=== PATIENT | female | born 1965 | race Caucasian/White ===

== ENCOUNTER 2022-06-25 08:07 | Outpatient (REF) | payer OTHER, SELFPAY ==
[2022-06-25 11:24] LABS: MANUAL DIFF FLAG NO
[2022-06-25 11:30] LABS: Basophils Absolute Auto 0.1 X10*3/uL (0.0-0.2); Eosinophils Absolute Auto 0.2 X10*3/uL (0.0-0.4); Eosinophils Percent Auto 3.8 % (0-4); Hematocrit 44.1 % (37.0-47.0); Hemoglobin 14.4 g/dl (12.0-16.0); Imm Gran Abs Auto 0.01 X10*3/uL (0.00-0.03); Imm Gran Pct Auto 0.2 % (0.0-0.4); Lymphocytes Absolute Auto 1.4 X10*3/uL (1.2-4.9); Lymphocytes Percent Auto 27.9 % (20-40); Mean Corpuscular HGB Conc 32.7 g/dl (31.0-35.0); Mean Corpuscular Hemoglobin 31.4 pg (27.0-33.0); Mean Corpuscular Volume 96.1 fL (80.0-98.0); Mean Platelet Volume 10.1 fL (9.4-12.3); Monocytes Absolute Auto 0.5 X10*3/uL (0.1-1.2); Monocytes Percent Auto 9.3 % (2-11); Neutrophils Absolute Auto 2.9 x10*3/uL (2.0-8.3); Neutrophils Percent Auto 57.8 % (45-73); Platelet Count 288 X10*3/uL (160-400); Red Blood Count 4.59 X10*6/uL (4.20-5.50); Red Cell Distribution Width 11.9 % (11.0-16.0); White Blood Count 5.1 X10*3/uL (4.8-10.8)
[2022-06-25 11:39] LABS: Appearance Urine Clear; Color Urine Yellow; Glucose Urine UA Negative (Negative); Leukocyte Esterase Urine Negative (Negative); Nitrite Urine Negative (Negative); Specific Gravity - Urine <= 1.005 (1.005-1.025); Urine Blood Negative (Negative); Urine Ketones Negative (Negative); Urine Protein Negative (Neg-Trace)
[2022-06-25 12:11] LABS: TSH reflex Free T4 0.78 uIU/mL (0.32-4.0); Vitamin D 25-OH Total 39.1 ng/mL (>30)
[2022-06-25 12:21] LABS: Alanine Aminotransferase 19 U/L (0-31); Albumin Level 4.9 g/dL (3.5-5.0); Alkaline Phosphatase 72 U/L (39-117); Anion Gap 17 (12-20); Aspartate Amino Transferase 22 U/L (5-31); Bilirubin Total 0.5 mg/dL (0.0-1.0); Blood Urea Nitrogen 12 mg/dL (9-16); Calcium 10.3 mg/dL (8.4-10.2); Carbon Dioxide 26 mmol/L (22-29); Chloride 104 mmol/L (96-108); Cholesterol 231 mg/dL; Estimated Glomerular Filt Rate > 60; Glucose Fasting 90 mg/dL (60-99); HDL Cholesterol 95 mg/dL; LDL Cholesterol Calculated 116 mg/dl; Potassium 4.9 mmol/L (3.3-5.1); Sodium 142 mmol/L (135-145); Total Protein 7.6 g/dL (6.5-8.0); Triglycerides 104 mg/dL
== END 2022-06-25 08:08 | disposition home or self-care (01) ==
LOC: HO.HMGCLDS 08:07
PROVIDERS: PCP Internal Medicine; Visit Provider Internal Medicine
DX: Z13.89 Encounter for screening for other disorder (principal)
CPT/HCPCS: 36415; 80053; 80061; 81003; 82306; 84443; 85025

== ENCOUNTER 2023-06-29 06:02 | Outpatient (REF) | payer OTHER, SELFPAY ==
[2023-06-29 11:13] LABS: MANUAL DIFF FLAG NO
[2023-06-29 11:41] LABS: Alanine Aminotransferase 14 U/L (0-31); Albumin Level 4.3 g/dL (3.5-5.0); Alkaline Phosphatase 60 U/L (39-117); Anion Gap 12 (12-20); Aspartate Amino Transferase 20 U/L (5-31); Bilirubin Total 0.5 mg/dL (0.0-1.0); Blood Urea Nitrogen 17 mg/dL (9-16); Calcium 9.5 mg/dL (8.4-10.2); Carbon Dioxide 28 mmol/L (22-29); Chloride 106 mmol/L (96-108); Cholesterol 208 mg/dL (<200); Estimated Glomerular Filt Rate > 60; Glucose Fasting 86 mg/dL (60-99); HDL Cholesterol 87 mg/dL (>40); LDL Cholesterol Calculated 99 mg/dL (<100); Potassium 4.6 mmol/L (3.3-5.1); Sodium 141 mmol/L (135-145); Total Protein 6.9 g/dL (6.5-8.0); Triglycerides 114 mg/dL (<150)
[2023-06-29 11:43] LABS: Basophils Absolute Auto 0.1 X10*3/uL (0.0-0.2); Eosinophils Absolute Auto 0.5 X10*3/uL (0.0-0.4); Eosinophils Percent Auto 6.7 % (0-4); Hematocrit 41.2 % (37.0-47.0); Hemoglobin 13.6 g/dl (12.0-16.0); Imm Gran Abs Auto 0.01 X10*3/uL (0.00-0.03); Imm Gran Pct Auto 0.1 % (0.0-0.4); Lymphocytes Absolute Auto 2.2 X10*3/uL (1.2-4.9); Lymphocytes Percent Auto 31.9 % (20-40); Mean Corpuscular Volume 96.9 fL (80.0-98.0); Mean Platelet Volume 10.6 fL (9.4-12.3); Monocytes Absolute Auto 0.6 X10*3/uL (0.1-1.2); Monocytes Percent Auto 7.9 % (2-11); Neutrophils Absolute Auto 3.7 x10*3/uL (2.0-8.3); Neutrophils Percent Auto 52.4 % (45-73); Platelet Count 262 X10*3/uL (160-400); Red Blood Count 4.25 X10*6/uL (4.20-5.50); Red Cell Distribution Width 12.3 % (11.0-16.0)
[2023-06-29 12:02] LABS: TSH reflex Free T4 1.95 uIU/mL (0.32-4.0); Vitamin D 25-OH Total 48.2 ng/mL (>30)
== END 2023-06-29 06:03 | disposition home or self-care (01) ==
LOC: HO.HMGCLDS 06:02
PROVIDERS: PCP Internal Medicine; Visit Provider Internal Medicine
DX: Z00.00 Encounter for general adult medical examination without abnormal findings (principal); M85.80 Other specified disorders of bone density and structure, unspecified site; E78.00 Pure hypercholesterolemia, unspecified; I10 Essential (primary) hypertension
CPT/HCPCS: 36415; 80053; 80061; 82306; 84443; 85025

== ENCOUNTER 2023-06-30 07:53 | Outpatient (AMB) | payer OTHER, SELFPAY ==
--- NOTE | 2023-06-30 07:59 | MHC.PC.OV ---
Vital Signs 06/30/23 08:01 Height 5 ft 4.5 in Weight 158 lb BMI 26.7 BP 110/70 Blood Pressure Location Rt brachial Position Sitting Pulse 72 Pulse Source Pulse Oximeter Pulse Oximetry (%) 100 Oxygen Delivery Method Room Air Intake Visit Reasons: Annual PE Allergies oxybutynin Allergy (Unknown, Verified 06/30/23 08:01) rash Tobacco use date assessed: 06/30/23 Dental Screening Dental Screen Date: 06/30/23 Did you have a dental visit in the last 12 months?: Yes Did you have a dental problem in the last 6 months where you did not have access to dental care?: No Was dental information given to patient?: Patient has dentist HPI Annual PE HPI Details Pt presents for PE. PFSH Medical History Annual physical exam Breast cancer, left Hypercholesterolemia Anxiety and depression Insomnia HTN (hypertension) Surgical History H/O colonoscopy Social History Housing: Apartment Patient Tobacco Use Status: Former Tobacco user e-Cigarette/Vaping Use: Never Used Current occupational status: employed Cognitive needs: No Hearing needs: No Vision needs: No Questionnaire PHQ-9 Over the last 2 weeks, how often have you been bothered by any of the following problems? 1. Little interest or pleasure in doing things: several days 2. Feeling down, depressed, or hopeless: not at all 3. Trouble falling or staying asleep, or sleeping too much: several days 4. Feeling tired or having little energy: several days 5. Poor appetite or overeating: not at all 6. Feeling bad about yourself - or that you are a failure or have let yourself or your family down: not at all 7. Trouble concentrating on things, such as reading the newspaper or watching television: not at all 8. Moving or speaking so slowly that other people could have noticed. Or the opposite - being so fidgety or restless that you have been moving around a lot more than usual: not at all 9. Thoughts that you would be better off or of hurting yourself in some way: not at all Total score: 3 Depression Screening Interpretation: Negative Depression Screening Done: Yes 80486 - PHQ-9 Billing: Yes Source: Developed by Drs. Tyshawn Sewell, Alan Elias and colleagues, with an educational frandy from [employer]. Thrive Questionnaire Date Thrive assessed: 06/30/23 I am a: Patient What is your living situation today?: I have a steady place to live Within the past 12 months, did the food you bought not last and you didn't have the money to get more?: Never true Within the past 12 months, did you worry whether your food would run out before you got money to buy more?: Never true Do you have trouble paying for medicines?: No Do you have trouble getting transportation to medical appointments?: No Do you have trouble paying your heating and electricity bill?: No Do you have trouble taking care of your child, family member or friend?: No Do you have trouble with day-to-day activities such as bathing, preparing meals, shopping, managing finances, etc.?: No Are you currently unemployed and looking for a job?: No Are you interested in more education?: No AUDIT C Alcohol Use Questionnaire (AUDIT-C) 1. How often do you have a drink containing alcohol?: 2-3 times a week 2. How many drinks containing alcohol do you have on a typical day when you are drinking?: 1 or 2 3. How often do you have six or more drinks on one occasion?: Never Total Score: 3 Score Reviewed/Action Taken: No MARY-7 AMB Questionnaire MARY-7 Date MARY - 7 assessed: 06/30/23 Feeling nervous, anxious, or on edge: 1 = Several days Not being able to stop or control worryin = Several days Worrying too much about different things: 1 = Several days Trouble relaxin = Not at all Being so restless that it is hard to sit still: 0 = Not at all Becoming easily annoyed or irritable: 0 = Not at all Feeling afraid as if something awful might happen: 0 = Not at all Total MARY-7 score (0-4 normal; 5-9 mild; 10-14 moderate; 15-21 severe): 3 Source: Developed by Arely Luu Kurt Kroenke and colleagues, with an educational frandy from [employer]. MARY-7 Assessment Billing MARY-7 Assessment Tool: MARY-7 Assessment 70243 Review of Systems Const All systems reviewed & are unremarkable except as noted in HPI and below Reports no additional complaints Eyes Reports no additional complaints ENT Reports no additional complaints Card Reports no additional complaints Resp Reports no additional complaints GI Reports no additional complaints Reports no additional complaints Musc Reports no additional complaints Skin/Breast Reports system reviewed and no additional complaints, except as documented Neuro Reports no additional complaints Physical exam (Primary Care) Vital Signs: Last Vital Signs Pulse 72 06/30/23 08:01 BP 110/70 06/30/23 08:01 Pulse Ox 100 06/30/23 08:01 Oxygen Delivery Method Room Air 06/30/23 08:01 BMI result Body Mass Index 26.7 Tobacco/Smoking Status: Tobacco use Status Tobacco use date assessed 06/30/23 06/30/23 08:04 Patient Tobacco Use Status Former Tobacco user 06/30/23 08:04 e-Cigarette/Vaping Use Never Used 06/30/23 08:04 Depression Screening Interpretation: Negative Thrive Assessment: Date of Thrive Assessment Date Thrive assessed 06/25/22 06/30/23 08:04 Const General: no acute distress HENMT Head: Yes normal to inspection Ears: hearing grossly normal bilaterally General nose exam: Normal external nose present Face and sinus: Yes normal facial exam Mouth: Normal oral and palatal mucosa present Eyes General: appearance normal, both eyes and all related structures Neck Neck: Yes no lymphadenopathy and Yes supple Resp Effort & Inspection: normal respiratory effort Auscultation: clear to auscultation bilaterally Cardio Rhythm: regular rhythm Heart sounds: S1 normal heart sound present and S2 normal heart sound present GI Inspection: Yes normal to inspection Palpation (GI): Soft to palpation Percussion: Yes normal to percussion Auscultation: normal bowel sounds Assessment and Plan Assessment & Plan (1) Osteopenia: Comment: On zoledronic acid infusion every 6 months, ?DEXA by oncology [facility] Code(s): M85.80 - Other specified disorders of bone density and structure, unspecified site (2) Breast cancer, left: Comment: 12/2017 s/p lumpectomy/RTx, on anastrozole f/u [facility] Code(s): C50.912 - Malignant neoplasm of unspecified site of left female breast (3) HTN (hypertension): Code(s): I10 - Essential (primary) hypertension Plan: Continue lisinopril (4) Annual physical exam: Code(s): Z00.00 - Encounter for general adult medical examination without abnormal findings Plan: Well-balanced diet and regular exercise discussed with the patient she is up-to-date with colonoscopy mammogram and Pap smear. Patient will return in 1 year (5) Anxiety and depression: Code(s): F41.9 - Anxiety disorder, unspecified; F32.9 - Major depressive disorder, single episode, unspecified Plan: Continue buspirone Coding Level of Care Code Est Pt Prev Care 40-64y(81282) Diagnoses Osteopenia M85.80 Breast cancer, left C50.912 HTN (hypertension) I10 Annual physical exam Z00.00 Anxiety and depression F41.9; F32.9 Additional Codes MARY-7 Assessment Billing - MARY-7 Assessment Tool: MARY-7 Assessment 20699 ([id number])
[2023-06-30 08:01] VITALS: BP 110/70; PULSE 72; O2SAT 100; BMI 26.7
== END 2023-06-30 08:31 | disposition home or self-care (01) ==
PROVIDERS: Visit Provider Internal Medicine
DX: Z00.00 Encounter for general adult medical examination without abnormal findings (principal); M85.80 Other specified disorders of bone density and structure, unspecified site; C50.912 Malignant neoplasm of unspecified site of left female breast; I10 Essential (primary) hypertension; F41.9 Anxiety disorder, unspecified; F32.9 Major depressive disorder, single episode, unspecified
CPT/HCPCS: 99396

== ENCOUNTER 2023-09-16 08:38 | Outpatient (AMB) | payer OTHER, SELFPAY ==
[2023-09-16 08:49] VITALS: BP 110/70; PULSE 63; O2SAT 96; BMI 26.7
--- NOTE | 2023-09-16 08:49 | MHC.PC.OV ---
Vital Signs 09/16/23 08:49 Height 5 ft 4.5 in Weight 158 lb BMI 26.7 BP 110/70 Blood Pressure Location Rt brachial Position Sitting Pulse 63 Pulse Source Pulse Oximeter Pulse Oximetry (%) 96 Oxygen Delivery Method Room Air Intake Visit Reasons: Hemorrhoids Intake Note: Ptis here today for a sick visit. Pt c/o hemorrhoids. Allergies oxybutynin Allergy (Unknown, Verified 09/16/23 08:59) rash Medication List - Last Reconciled 09/16/23 by Ellen Pleitez MD anastrozole 1 mg PO DAILY buspirone 10 mg PO DAILY calcium carbonate (Calcium) 600 mg PO DAILY cholecalciferol (vitamin D3) 50 mcg PO DAILY hydrocortisone acetate (Proctocort) 30 mg [place] BEDTIME lisinopril 5 mg PO DAILY magnesium 250 mg PO DAILY zolpidem ER 6.25 mg PO BEDTIME Tobacco use date assessed: 09/16/23 Dental Screening Dental Screen Date: 09/16/23 Did you have a dental visit in the last 12 months?: Yes Did you have a dental problem in the last 6 months where you did not have access to dental care?: No Was dental information given to patient?: Patient has dentist HPI Hemorrhoids HPI Details Pt c/o chronic rectal bleeding and pain radiating to lower back on and off getting worse over the last few months. She denies abdominal pain blood mixed with the stool nausea vomiting fever chills. Patient has been taking stool softener to prevent constipation. She had a colonoscopy about 6 years ago and hemorrhoidectomy in 2010. Patient has been using [id number] preparation H with some relief. [facility] Medical History (Updated 09/16/23 @ 09:55 by Ellen Pleitez MD) Annual physical exam Breast cancer, left Hypercholesterolemia Anxiety and depression Insomnia HTN (hypertension) Surgical History (Updated 09/16/23 @ 09:35 by Ellen Pleitez MD) H/O colonoscopy Social History Housing: Apartment Patient Tobacco Use Status: Former Tobacco user e-Cigarette/Vaping Use: Never Used Current occupational status: employed Cognitive needs: No Hearing needs: No Vision needs: No Questionnaire PHQ-9 Over the last 2 weeks, how often have you been bothered by any of the following problems? 1. Little interest or pleasure in doing things: several days 2. Feeling down, depressed, or hopeless: not at all 3. Trouble falling or staying asleep, or sleeping too much: several days 4. Feeling tired or having little energy: several days 5. Poor appetite or overeating: not at all 6. Feeling bad about yourself - or that you are a failure or have let yourself or your family down: not at all 7. Trouble concentrating on things, such as reading the newspaper or watching television: not at all 8. Moving or speaking so slowly that other people could have noticed. Or the opposite - being so fidgety or restless that you have been moving around a lot more than usual: not at all 9. Thoughts that you would be better off or of hurting yourself in some way: not at all Total score: 3 Depression Screening Interpretation: Negative Depression Screening Done: Yes 39900 - PHQ-9 Billing: Yes Source: Developed by Drs. Tyshawn Sewell, Arely Canchola, Alan Muse and colleagues, with an educational frandy from [employer]. Thrive Questionnaire Date Thrive assessed: 09/16/23 I am a: Patient What is your living situation today?: I have a steady place to live Within the past 12 months, did the food you bought not last and you didn't have the money to get more?: Never true Within the past 12 months, did you worry whether your food would run out before you got money to buy more?: Never true Do you have trouble paying for medicines?: No Do you have trouble getting transportation to medical appointments?: No Do you have trouble paying your heating and electricity bill?: No Do you have trouble taking care of your child, family member or friend?: No Do you have trouble with day-to-day activities such as bathing, preparing meals, shopping, managing finances, etc.?: No Are you currently unemployed and looking for a job?: No Are you interested in more education?: No Please select the resources that you would like help with: None Currently or been in a relationship where the following occur: no concerns reported THRIVE Score: 0 AUDIT C Alcohol Use Questionnaire (AUDIT-C) 1. How often do you have a drink containing alcohol?: Monthly or less 2. How many drinks containing alcohol do you have on a typical day when you are drinking?: 1 or 2 3. How often do you have six or more drinks on one occasion?: Never Total Score: 1 MARY-7 AMB Questionnaire MARY-7 Date MARY - 7 assessed: 09/16/23 Feeling nervous, anxious, or on edge: 0 = Not at all Not being able to stop or control worryin = Not at all Worrying too much about different things: 0 = Not at all Trouble relaxin = Not at all Being so restless that it is hard to sit still: 0 = Not at all Becoming easily annoyed or irritable: 0 = Not at all Feeling afraid as if something awful might happen: 0 = Not at all Total MARY-7 score (0-4 normal; 5-9 mild; 10-14 moderate; 15-21 severe): 0 Source: Developed by Drs. Tyshawn Sewell, Arely Canchola, Alan Muse and colleagues, with an educational frandy from [employer]. Review of Systems Const All systems reviewed & are unremarkable except as noted in HPI and below Reports no additional complaints Eyes Reports no additional complaints ENT Reports no additional complaints Card Reports no additional complaints Resp Reports no additional complaints GI Reports no additional complaints Reports no additional complaints Physical exam (Primary Care) Vital Signs: Last Vital Signs Pulse 63 09/16/23 08:49 BP 110/70 09/16/23 08:49 Pulse Ox 96 09/16/23 08:49 Oxygen Delivery Method Room Air 09/16/23 08:49 BMI result Body Mass Index 26.7 Tobacco/Smoking Status: Tobacco use Status Tobacco use date assessed 09/16/23 09/16/23 09:02 Patient Tobacco Use Status Former Tobacco user 09/16/23 08:49 e-Cigarette/Vaping Use Never Used 09/16/23 08:49 PHQ-9: PHQ-9 Score PHQ-9: Total score 3 09/16/23 09:03 Depression Screening Interpretation: Negative Thrive Assessment: Date of Thrive Assessment Date Thrive assessed 09/16/23 09/16/23 09:03 Currently or been in a relationship where the following occur: no concerns reported Const General: no acute distress HENMT Head: Yes normal to inspection Ears: hearing grossly normal bilaterally Eyes General: appearance normal, both eyes and all related structures Neck Neck: Yes no lymphadenopathy and Yes supple Resp Effort & Inspection: normal respiratory effort Auscultation: clear to auscultation bilaterally Cardio Rhythm: regular rhythm Heart sounds: S1 normal heart sound present and S2 normal heart sound present GI Rectal Exam - Female: External hemorrhoid(s) present (Swollen and tender) Assessment and Plan Assessment & Plan (1) S/P hemorrhoidectomy: Comment: 2010 Dr. Clemons Code(s): Z98.890 - Other specified postprocedural states; Z87.19 - Personal history of other diseases of the digestive system (2) Hemorrhoid: Comment: Last colonoscopy 2018 Dr. Franco Code(s): K64.9 - Unspecified hemorrhoids Plan: Proctocort suppositories prescribed, local care discussed with the patient. She was advised to increase fiber and fluid intake to prevent constipation. Patient will be referred to GI to discuss a repeat colonoscopy or at least sigmoidoscopy to evaluate for chronic rectal bleeding. (3) Rectal bleeding: Code(s): K62.5 - Hemorrhage of anus and rectum Orders: Referrals Gastroenterology Referral K62.5 - Hemorrhage of anus and rectum, K64.9 - Unspecified hemorrhoids Medications: New hydrocortisone acetate (Proctocort) 30 mg [place] BEDTIME 12 ea 1RF Changed From buspirone 15 mg (1.5 x 10 mg) PO BID 270 tabs 3RF To buspirone 10 mg PO DAILY Coding Level of Care Code Est Pt Level 3 (79037) Diagnoses S/P hemorrhoidectomy Z98.890; Z87.19 Hemorrhoid K64.9 Rectal bleeding K62.5
== END 2023-09-16 09:53 | disposition home or self-care (01) ==
PROVIDERS: PCP Internal Medicine; Visit Provider Internal Medicine
DX: Z98.890 Other specified postprocedural states (principal); Z87.19 Personal history of other diseases of the digestive system; K64.9 Unspecified hemorrhoids; K62.5 Hemorrhage of anus and rectum
CPT/HCPCS: 99213

== ENCOUNTER 2023-10-20 08:45 | Outpatient (AMB) | payer OTHER, SELFPAY ==
--- NOTE | 2023-10-20 08:54 | MHC.OFFVIS ---
Intake Vital Signs 10/20/23 08:55 Height 5 ft 4.5 in Weight 155 lb BMI 26.2 BP 142/72 H Blood Pressure Location Rt brachial Position Sitting Pulse 61 Intake Visit Reasons: hemorrhoids Intake Note: Patient referred by PCP Dr. Pleitez for hemorrhoids. Rx for proctosol suppositories helped. Hx of hemorrhoidectomy by Dr. Buchanan. Patient c/o: pain, [employer] Required: No Accompanied by: Self / Same As Patient Allergies oxybutynin Allergy (Unknown, Verified 10/20/23 08:58) rash Medication List - Last Reconciled 10/20/23 by Moi Gupta MD anastrozole 1 mg PO DAILY buspirone 10 mg PO DAILY calcium carbonate (Calcium) 600 mg PO DAILY cholecalciferol (vitamin D3) 50 mcg PO DAILY hydrocortisone acetate (Proctocort) 30 mg [place] BEDTIME lisinopril 5 mg PO DAILY magnesium 250 mg PO DAILY zolpidem ER 6.25 mg PO BEDTIME HPI HPI Comments History of Present Illness Details 58-year-old female patient presenting with a previous history of internal hemorrhoids now presenting with complaints of severe anal pain. This is been progressing over the past several months. She reports pain with sitting which seems to increase with having a bowel movement. She does require some straining to have a bowel movement and occasionally has bleeding. She denies fever, chills, nausea or vomiting. She has taking a stool softener which is not helping the pain. [facility] Medical History Annual physical exam Breast cancer, left Hypercholesterolemia Anxiety and depression Insomnia HTN (hypertension) Surgical History H/O colonoscopy Social History Housing: Apartment Patient Tobacco Use Status: Former Tobacco user e-Cigarette/Vaping Use: Never Used Current occupational status: employed Cognitive needs: No Hearing needs: No Vision needs: No Review of Systems Const All systems reviewed & are unremarkable except as noted in HPI and below Physical Exam Vital Signs: Last Vital Signs Pulse 61 10/20/23 08:55 BP 142/72 H 10/20/23 08:55 BMI result Body Mass Index 26.2 Const General: comfortable Nutritional Appearance: well nourished Orientation/consciousness: patient oriented x3 Limitations: no limitations Resp Effort & Inspection: normal respiratory effort GI Other: External anal examination reveals no erythema or external hemorrhoid. Palpation is tender to palpation along the anal sphincter. Digital rectal examination: Tenderness along the internal anal sphincter. Sphincter tone is extremely tight. Unable to perform digital examination due to tenderness. No active bleeding identified. Unable to perform anoscopic examination due to pain. Neuro General: patient oriented x3 Extrem General: Yes normal to inspection Assessment & Plan Assessment & Plan (1) Anal fissure: Code(s): K60.2 - Anal fissure, unspecified Plan 58-year-old female patient presenting with complaints of anal pain found to have evidence of an anal fissure with an extremely hypertrophic anal sphincter muscle. We discussed the options including stool softeners, fiber therapy, injection therapy, and lateral internal sphincterotomy. After discussion of the procedure, risks, and alternatives, she is consented to a lateral internal sphincterotomy. This will be scheduled at her earliest convenience as a short-stay surgery. Coding Level of Care Code New Pt Level 4 (22954) Diagnoses Anal fissure K60.2
[2023-10-20 08:55] VITALS: BP 142/72; PULSE 61; BMI 26.2
== END 2023-10-20 09:10 | disposition home or self-care (01) ==
PROVIDERS: PCP Internal Medicine; Visit Provider Surgery
DX: K60.2 Anal fissure, unspecified (principal)
CPT/HCPCS: 99204

== ENCOUNTER → 2023-10-20 08:45 | Outpatient (BNVA) | payer OTHER, SELFPAY | PROVIDERS: PCP Internal Medicine; Visit Provider Surgery ==

== ENCOUNTER 2023-10-26 07:24 | Day surgery (SDC) | payer OTHER, SELFPAY ==
--- NOTE | 2023-10-22 13:44 | P.CONAN_ITS ---
Documented by User: Brielle Puga NP 10/22/23 13:45 HPI - Anesthesia Eval Consult details Narrative: 58yo F for Lateral Internal Sphincterotomy PMFSH Active Problems Active Problems: All Active Problems (Updated 10/20/23 @ 10:39 by Moi Gupta MD) Anal fissure (Acute) Hemorrhoid (Acute) Rectal bleeding (Acute) S/P hemorrhoidectomy (Acute) Osteopenia (Acute) Breast cancer, left (Acute) Hypercholesterolemia (Acute) HTN (hypertension) (Acute) Anxiety and depression (Acute) Annual physical exam (Acute) Past Medical History Medical History Annual physical exam Breast cancer, left Hypercholesterolemia Anxiety and depression Insomnia HTN (hypertension) Surgical History Surgical History H/O colonoscopy Social History Social History Housing: Apartment Patient Tobacco Use Status: Former Tobacco user Quit Date: 3 weeks e-Cigarette/Vaping Use: Never Used Use of substances other than those prescribed or required for medical reasons: Yes Are you DNR?: No Advance Directives: No Advance Directives Information Provided: Yes Current occupational status: employed Cognitive needs: No Hearing needs: No Vision needs: No Meds Allergies Allergy/AdvReac Type Severity Reaction Status Date / Time oxybutynin Allergy Unknown rash Verified 10/20/23 08:58 Home Medications Medication Instructions Recorded Confirmed Last Taken Type anastrozole 1 mg tablet 1 mg PO DAILY 06/25/22 10/26/23 Unknown History calcium carbonate 600 mg calcium 600 mg PO DAILY 06/25/22 10/26/23 Unknown History (1,500 mg) tablet (Calcium) cholecalciferol (vitamin D3) 50 50 mcg PO DAILY 06/25/22 10/26/23 Unknown History mcg (2,000 unit) capsule magnesium 250 mg tablet 250 mg PO DAILY 06/25/22 10/26/23 Unknown History buspirone 10 mg tablet 10 mg PO DAILY 09/16/23 10/26/23 Unknown History Exam Pertinent Lab Results Pertinent Lab Results: Laboratory Tests 06/29/23 06:09 WBC 7.0 Hgb 13.6 Hct 41.2 Plt Count 262 Sodium 141 Potassium 4.6 Chloride 106 Carbon Dioxide 28 BUN 17 H Creatinine 0.84 Assessment and Plan Assessment Anesthesia Assessment: Chart Reviewed Documented by User: Avril Hines MD 10/26/23 08:31 [facility] Past Medical History Medical History Annual physical exam Breast cancer, left Hypercholesterolemia Anxiety and depression Insomnia HTN (hypertension) Surgical History Surgical History H/O colonoscopy History of Problems with Anesthesia: No Social History Social History Housing: Apartment Patient Tobacco Use Status: Former Tobacco user Quit Date: 3 weeks e-Cigarette/Vaping Use: Never Used Use of substances other than those prescribed or required for medical reasons: Yes Are you DNR?: No Advance Directives: No Advance Directives Information Provided: Yes Current occupational status: employed Cognitive needs: No Hearing needs: No Vision needs: No Meds Allergies Allergy/AdvReac Type Severity Reaction Status Date / Time oxybutynin Allergy Unknown rash Verified 10/20/23 08:58 Home Medications Medication Instructions Recorded Confirmed Last Taken Type anastrozole 1 mg tablet 1 mg PO DAILY 06/25/22 10/26/23 Unknown History calcium carbonate 600 mg calcium 600 mg PO DAILY 06/25/22 10/26/23 Unknown History (1,500 mg) tablet (Calcium) cholecalciferol (vitamin D3) 50 50 mcg PO DAILY 06/25/22 10/26/23 Unknown History mcg (2,000 unit) capsule magnesium 250 mg tablet 250 mg PO DAILY 06/25/22 10/26/23 Unknown History buspirone 10 mg tablet 10 mg PO DAILY 09/16/23 10/26/23 Unknown History Exam Pertinent Lab Results Pertinent Lab Results: Laboratory Tests 06/29/23 06:09 WBC 7.0 Hgb 13.6 Hct 41.2 Plt Count 262 Sodium 141 Potassium 4.6 Chloride 106 Carbon Dioxide 28 BUN 17 H Creatinine 0.84 Airway Mallampati Class: II TM Dist: >3cm Neck ROM: Full Loose/Missing/Broken Teeth: No Heart: RRR Lungs: CTA Assessment and Plan Assessment Anesthesia Assessment: Anesthesia Plan Discussed Final Anesthetic Review History of Problems with Anesthesia: No NPO: Yes ASA Class: II Final Preanesthetic Review: Meds/Allgs Chart Reviewed, Consent Obtained/Reviewed and Anes Risks/Benef Reviewed Patient Risk: Low Procedure Risk: Low Anesthetic Plan Anesthetic Plan: GA Disposition: Standard PACU
[2023-10-26] VITALS (11 sets, daily range): BP systolic 104–127; BP diastolic 62–88; PULSE 54–66; RESP 14–18; TEMP 36.2–36.7; O2SAT 98–100; BMI 26.1
[2023-10-26] MEDS: Lactated Ringers 1,000 ML 100 ML IVCONT (08:12)
--- NOTE | 2023-10-26 08:30 | MHC.SHP ---
Pre-Procedural Eval Section A - 24 Hr Update-Section A only Date of Service: 10/26/23 The patient is an INPATIENT: No Changes since office visit: Yes Patient answered all questions; No Cold of Flu in the past 2 weeks, No New Medical Problems and No Changes in Medication The patient has been examined within 24 hours of the surgical procedure. The History & Physical has been completed within 30 days and I have reviewed it.: Yes Section B - Complete if H&P > 30 days Chief Complaint: Anal fissure, unspecified Allergies: Allergies Allergy/AdvReac Type Severity Reaction Status Date / Time oxybutynin Allergy Unknown rash Verified 10/20/23 08:58 Plan Diagnosis/Plan: Unchanged I have reviewed the history and physical and performed a pertinent physical examination on my patient. No changes have occurred unless specified. Time Spent With Patient Time: Total time managing care of this patient today ____ minutes.
--- NOTE | 2023-10-26 09:11 | W.PM.OPN ---
Operative Note Operative Note Date of Service: 10/26/23 Narrative: Preoperative diagnosis: Anal fissure Postoperative diagnosis: Same Procedure: Lateral internal sphincterotomy Surgeon: Moi Gupta MD Financial Analyst Intern: MAGDALENA Reyes Anesthesia: General LMA Indications for procedure: 58-year-old female patient presenting with severe rectal pain and bleeding, increased with bowel movements. She reports straining to have a bowel movement. On examination the patient was found to have tight anal sphincter muscles and a posterior fissure. Operative findings: Exam under anesthesia confirmed a large posterior wall anal fissure. Anal sphincter muscles were extremely hypertrophied. Specimen: None Estimated blood loss: Less than 2 mL Complications: None Procedure details: Patient was brought to the OR and placed in a supine position. After administering general anesthesia she was placed in the lithotomy position. A surgical time-out was called the consent confirmed. Patient received preoperative antibiotics and Venodyne boots were in place. Local anesthesia was infiltrated into the left anal wall. Anoscopic examination was performed in the posterior anal fissure identified. No other fissures were identified. Internal hemorrhoids were small. No abscess could be identified. No thrombosed hemorrhoids were identified. A 3 cm incision was then made in the lateral wall at approximately the 3 o'clock position this was carried out through subcutaneous tissue using electrocautery. Hemostat was then used to dissect the internal sphincter muscle and bring it up through the incision. Electrocautery was then used to divide the muscle. Re-examination of the anal sphincter revealed good relaxation. Light pressure was held to maintain hemostasis. Very minimal bleeding was identified. The wound was then packed with Surgicel and a packing roll made with a 4 x 4 gauze and Xeroform placed within the anal canal. Wounds were then covered with a ABD pad. The patient tolerated the procedure well. Sponge, instrument, and needle counts reported as correct. The patient was transferred to PACU in stable condition.
[2023-10-26] MEDS: oxyCODONE HCl Immed Release 5 MG TABLET PO (09:29)
[2023-10-26] MEDS: fentaNYL citrate/PF 100 MCG/2 ML VIAL 25 MCG IVPUSH ×2 (09:30→10:00)
== END 2023-10-26 11:08 | disposition home or self-care (01) ==
PROVIDERS: PCP Internal Medicine; Visit Provider Surgery
PROC: (CPT 46080; principal; 2023-10-26 09:00)
DX: K60.2 Anal fissure, unspecified (principal); K62.5 Hemorrhage of anus and rectum; K64.8 Other hemorrhoids; I10 Essential (primary) hypertension; E78.00 Pure hypercholesterolemia, unspecified; C50.912 Malignant neoplasm of unspecified site of left female breast; Z79.811 Long term (current) use of aromatase inhibitors; Z79.899 Other long term (current) drug therapy; Z88.8 Allergy status to other drugs, medicaments and biological substances; Z98.890 Other specified postprocedural states; Z87.891 Personal history of nicotine dependence
CPT/HCPCS: 46080; J0665; J2250; J2704; J3010

== ENCOUNTER → 2023-10-26 07:24 | Outpatient (BNV) | payer OTHER, SELFPAY | PROVIDERS: PCP Internal Medicine; Visit Provider Surgery | DX: K60.2 Anal fissure, unspecified (principal) | CPT/HCPCS: 46080 ==

== ENCOUNTER 2023-11-03 09:20 | Outpatient (AMB) | payer OTHER, SELFPAY ==
--- NOTE | 2023-11-03 09:21 | A.OFFVIS_ITS ---
Intake Vital Signs 11/03/23 09:28 Height 5 ft 4.5 in Weight 157 lb BMI 26.5 BP 134/82 Blood Pressure Location Lt brachial Pulse 65 Intake Visit Reasons: S/P lateral internal sphincterotomy Intake Note: Patient is seen in office for post op assessment post lateral internal sphincterotomy. 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 She feels well and denies any ongoing rectal pain or bleeding. Her bowels are normal without bleeding. [facility] Medical History (Updated 10/20/23 @ 10:39 by Moi Gupta MD) Annual physical exam Breast cancer, left Hypercholesterolemia Anxiety and depression Insomnia HTN (hypertension) Surgical History (Updated 11/02/23 @ 11:55 by ROSA ELENA Sainz) Hx of rectal sphincterotomy (10/26/23) H/O colonoscopy Social History Housing: Apartment Patient Tobacco Use Status: Former Tobacco user Quit Date: 3 weeks e-Cigarette/Vaping Use: Never Used Current occupational status: employed Cognitive needs: No Hearing needs: No Vision needs: No Physical Exam Const General: no acute distress Nutritional Appearance: well nourished Orientation/consciousness: patient oriented x3 Resp Effort & Inspection: normal respiratory effort GI Other: Anal examination: [place] pile remains however there is no evidence of erythema or discharge. Wounds are healing nicely. Small amount of ecchymosis noted below. Inspection: Yes normal to inspection Neuro General: patient oriented x3 Assessment & Plan Assessment & Plan (1) Anal fissure: Code(s): K60.2 - Anal fissure, unspecified Plan 58-year-old female patient with a large anal fissure status post lateral i nternal sphincterotomy. She tolerated procedure well and reports feeling much improved following the surgery. She should continue to keep the area clean with Sitz baths at least twice daily and should follow up as needed. She may return to work tomorrow without restrictions. Coding Level of Care Code Global (14708) Diagnoses Anal fissure K60.2
[2023-11-03 09:28] VITALS: BP 134/82; PULSE 65; BMI 26.5
== END 2023-11-03 09:46 | disposition home or self-care (01) ==
PROVIDERS: PCP Internal Medicine; Visit Provider Surgery
DX: K60.2 Anal fissure, unspecified (principal)
CPT/HCPCS: 99024

== ENCOUNTER → 2023-11-03 09:20 | Outpatient (BNVA) | payer OTHER, SELFPAY | PROVIDERS: PCP Internal Medicine; Visit Provider Surgery ==

== ENCOUNTER 2024-02-22 08:18 | Outpatient (AMB) | payer BC, SELFPAY ==
--- NOTE | 2024-02-22 08:45 | MHC.OFFWIV ---
Intake Vital Signs 02/22/24 08:46 Height 5 ft 4.5 in Weight 157 lb BMI 26.5 BP 122/72 Blood Pressure Location Rt brachial Position Sitting Pulse 82 Pulse Source Pulse Oximeter Temp 98.3 F Temp Source Oral Pulse Oximetry (%) 97 Intake Visit Reasons: EP Fever 1 week, cough, chest tightness Intake Note: pt is here for fever, cough, chest tightness for over 1 week Patient Tobacco Use Status: Former Tobacco user Allergies oxybutynin Allergy (Unknown, Verified 02/22/24 08:51) rash Do you need a note to return to daycare/school/sports/work: No HPI HPI Comments History of Present Illness Details Patient is a 58-year-old female complaining of 1 week of on and off fevers of 100 to 101 degrees F that resolves with ibuprofen and Tylenol. She is also complaining of chest tightness, fatigue and a new sore throat that started last night. She states she thinks she sees white patches in the back of her throat. 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 She states she has been trying to hydrate and take [id number]-nio-xerppdu medications to make herself feel better, as well as resting. [facility] Medical History (Updated 02/22/24 @ 09:07 by Darcy Nunn PA-C) Annual physical exam Breast cancer, left Hypercholesterolemia Anxiety and depression Insomnia HTN (hypertension) Surgical History Hx of rectal sphincterotomy (10/26/23) H/O colonoscopy Social History Housing: Apartment Patient Tobacco Use Status: Former Tobacco user e-Cigarette/Vaping Use: Never Used Current occupational status: employed Cognitive needs: No Hearing needs: No Vision needs: No Review of Systems Const All systems reviewed & are unremarkable except as noted in HPI and below Physical Exam Vital Signs: Last Vital Signs Temp 98.3 F 02/22/24 08:46 Pulse 82 02/22/24 08:46 BP 122/72 02/22/24 08:46 Pulse Ox 97 02/22/24 08:46 BMI result Body Mass Index 26.5 Const General: cooperative, healthy appearing, comfortable, no acute distress and well developed Orientation/consciousness: patient oriented x3 Limitations: no limitations HEENT Head: Yes normal to inspection Ears: TM's normal bilaterally General nose exam: Normal external nose present and Normal nares present Face and sinus: Yes normal facial exam Mouth: Normal oral and palatal mucosa present Teeth and gingiva: dentition normal Throat: Yes posterior oropharynx abnormal (erythema) Eyes General: appearance normal, both eyes and all related structures Neck Neck: Yes normal visual inspection, Yes full ROM and Yes no lymphadenopathy Resp Effort & Inspection: normal respiratory effort and able to speak in complete sentences Auscultation: clear to auscultation bilaterally Cardio Rate: regular rate Rhythm: regular rhythm Heart sounds: normal S1 and S2 Skin General skin exam: no rashes or lesions noted Neuro General: patient oriented x3 Extrem General: Yes normal to inspection Results AMB Rapid Strep AMB Rapid Strep Negative Last Edit by Francis Mcdonald CMA on 02/22/24 09:12 Assessment & Plan Assessment & Plan (1) URI (upper respiratory infection): Code(s): J06.9 - Acute upper respiratory infection, unspecified Qualifiers: URI type: unspecified viral URI Qualified Code(s): J06.9 - Acute upper respiratory infection, unspecified Plan: rapid strep . Sent Covid/Flu/RSV. Recommended treating self with ynyv-fzx-[id number] medications for her symptoms Plan See above Orders: Orders SARS-CoV2/FLU/RSV Today J06.9 - Acute upper respiratory infection, unspecified AMB Rapid Strep Screen Today Z13.9 - Encounter for screening, unspecified Coding Level of Care Code Est Pt Level 3 (98547) Diagnoses Viral upper respiratory tract infection J06.9 URI type: unspecified viral URI
[2024-02-22 08:46] VITALS: BP 122/72; PULSE 82; TEMP 36.8; O2SAT 97; BMI 26.5
== END 2024-02-22 09:17 | disposition home or self-care (01) ==
PROVIDERS: PCP Internal Medicine; Visit Provider Physician Assistant
DX: J06.9 Acute upper respiratory infection, unspecified (principal); J02.9 Acute pharyngitis, unspecified
CPT/HCPCS: 87880; 99213

== ENCOUNTER 2024-02-22 09:04 | Outpatient (REF) | payer BC, SELFPAY ==
[2024-02-22 11:12] LABS: Influenza A PCR NEGATIVE (Negative); Influenza B PCR NEGATIVE (Negative); Resp Syncy Virus RNA Qual PCR NEGATIVE (Negative); SARS COV2 PCR INHOUSE NEGATIVE (Negative)
== END 2024-02-22 09:05 | disposition home or self-care (01) ==
LOC: HO.LAB 09:04
PROVIDERS: Visit Provider Physician Assistant
DX: J06.9 Acute upper respiratory infection, unspecified (principal)
CPT/HCPCS: 0241U

== ENCOUNTER 2024-07-23 08:08 | Outpatient (REF) | payer BC, SELFPAY ==
[2024-07-23 11:12] LABS: MANUAL DIFF FLAG NO
[2024-07-23 11:35] LABS: Basophils Absolute Auto 0.1 X10*3/uL (0.0-0.2); Basophils Percent Auto 0.9 % (0-2); Eosinophils Absolute Auto 0.4 X10*3/uL (0.0-0.4); Hematocrit 42.6 % (37.0-47.0); Hemoglobin 14.4 g/dl (12.0-16.0); Imm Gran Abs Auto 0.01 X10*3/uL (0.00-0.03); Imm Gran Pct Auto 0.2 % (0.0-0.4); Lymphocytes Absolute Auto 1.8 X10*3/uL (1.2-4.9); Lymphocytes Percent Auto 26.9 % (20-40); Mean Corpuscular HGB Conc 33.8 g/dl (31.0-35.0); Mean Corpuscular Volume 94.7 fL (80.0-98.0); Mean Platelet Volume 9.8 fL (9.4-12.3); Monocytes Absolute Auto 0.6 X10*3/uL (0.1-1.2); Monocytes Percent Auto 8.7 % (2-11); Neutrophils Absolute Auto 3.8 x10*3/uL (2.0-8.3); Neutrophils Percent Auto 57.3 % (45-73); Platelet Count 272 X10*3/uL (160-400); Red Cell Distribution Width 12.4 % (11.0-16.0); White Blood Count 6.6 X10*3/uL (4.8-10.8)
[2024-07-23 11:39] LABS: Alanine Aminotransferase 18 U/L (0-31); Albumin Level 4.4 g/dL (3.5-5.0); Alkaline Phosphatase 62 U/L (39-117); Anion Gap 13 (12-20); Aspartate Amino Transferase 23 U/L (5-31); Bilirubin Total 0.6 mg/dL (0.0-1.0); Blood Urea Nitrogen 14 mg/dL (9-16); Calcium 9.4 mg/dL (8.4-10.2); Carbon Dioxide 24 mmol/L (22-29); Chloride 108 mmol/L (96-108); Cholesterol 214 mg/dL (<200); Estimated Glomerular Filt Rate > 60; Glucose Fasting 88 mg/dL (60-99); HDL Cholesterol 94 mg/dL (>40); LDL Cholesterol Calculated 104 mg/dL (<100); Potassium 4.6 mmol/L (3.3-5.1); Sodium 140 mmol/L (135-145); Total Protein 7.1 g/dL (6.5-8.0); Triglycerides 81 mg/dL (<150)
[2024-07-23 11:47] LABS: TSH reflex Free T4 1.04 uIU/mL (0.32-4.0)
== END 2024-07-23 08:09 | disposition home or self-care (01) ==
LOC: HO.HMGCLDS 08:08
PROVIDERS: PCP Internal Medicine; Visit Provider Internal Medicine
DX: Z00.00 Encounter for general adult medical examination without abnormal findings (principal); E78.00 Pure hypercholesterolemia, unspecified; I10 Essential (primary) hypertension; E55.9 Vitamin D deficiency, unspecified
CPT/HCPCS: 36415; 80053; 80061; 82306; 84443; 85025

== ENCOUNTER 2024-07-26 08:28 | Outpatient (AMB) | payer BC, SELFPAY ==
--- NOTE | 2024-07-26 08:31 | MHC.PC.OV ---
Vital Signs 07/26/24 08:32 Height 5 ft 4.5 in Weight 156 lb BMI 26.4 BP 110/74 Blood Pressure Location Rt brachial Position Sitting Pulse 69 Pulse Source Pulse Oximeter Pulse Oximetry (%) 97 Oxygen Delivery Method Room Air Intake Visit Reasons: Annual PE Intake Note: Pt is here today for PE. Allergies oxybutynin Allergy (Unknown, Verified 07/26/24 08:33) rash Medication List - Last Reconciled 07/26/24 by Ellen Pleitez MD buspirone 10 mg PO DAILY calcium carbonate (Calcium 600) 600 mg PO DAILY cholecalciferol (vitamin D3) 50 mcg PO DAILY hydrocortisone acetate (Proctocort) 30 mg WI BEDTIME lisinopril 5 mg PO DAILY magnesium 250 mg PO DAILY zolpidem ER 6.25 mg PO BEDTIME Tobacco use date assessed: 07/26/24 Dental Screening Dental Screen Date: 07/26/24 Did you have a dental visit in the last 12 months?: Yes Did you have a dental problem in the last 6 months where you did not have access to dental care?: No Was dental information given to patient?: Patient has dentist HPI Annual PE HPI Details Pt presents for PE. [facility] Medical History (Updated 07/26/24 @ 09:13 by Ellen Pleitez MD) Annual physical exam Breast cancer, left Hypercholesterolemia Anxiety and depression Insomnia HTN (hypertension) Surgical History Hx of rectal sphincterotomy (10/26/23) H/O colonoscopy Social History Housing: Apartment Patient Tobacco Use Status: Former Tobacco user e-Cigarette/Vaping Use: Never Used service: No Current occupational status: employed Cognitive needs: No Hearing needs: No Vision needs: No Questionnaire PHQ-9 Over the last 2 weeks, how often have you been bothered by any of the following problems? 1. Little interest or pleasure in doing things: not at all 2. Feeling down, depressed, or hopeless: not at all 3. Trouble falling or staying asleep, or sleeping too much: not at all 4. Feeling tired or having little energy: not at all 5. Poor appetite or overeating: not at all 6. Feeling bad about yourself - or that you are a failure or have let yourself or your family down: not at all 7. Trouble concentrating on things, such as reading the newspaper or watching television: not at all 8. Moving or speaking so slowly that other people could have noticed. Or the opposite - being so fidgety or restless that you have been moving around a lot more than usual: not at all 9. Thoughts that you would be better off or of hurting yourself in some way: not at all Total score: 0 Depression Screening Interpretation: Negative Depression Screening Done: Yes 49557 - PHQ-9 Billing: Yes Source: Developed by Drs. Tyshawn Sewell, Arely Canchola, Alan Muse and colleagues, with an educational frandy from [employer]. Thrive Questionnaire Date Thrive assessed: 07/26/24 I am a: Patient What is your living situation today?: I have a steady place to live Within the past 12 months, did the food you bought not last and you didn't have the money to get more?: Never true Within the past 12 months, did you worry whether your food would run out before you got money to buy more?: Never true Do you have trouble paying for medicines?: No Do you have trouble getting transportation to medical appointments?: No Do you have trouble paying your heating and electricity bill?: No Do you have trouble taking care of your child, family member or friend?: No Do you have trouble with day-to-day activities such as bathing, preparing meals, shopping, managing finances, etc.?: No Are you currently unemployed and looking for a job?: No Are you interested in more education?: No Please select the resources that you would like help with: None Currently or been in a relationship where the following occur: No concerns reported THRIVE Score: 0 AUDIT C Alcohol Use Questionnaire (AUDIT-C) 1. How often do you have a drink containing alcohol?: 2-4 times a month 2. How many drinks containing alcohol do you have on a typical day when you are drinking?: 1 or 2 3. How often do you have six or more drinks on one occasion?: Never Total Score: 2 MARY-7 AMB Questionnaire MARY-7 Date MARY - 7 assessed: 07/26/24 Feeling nervous, anxious, or on edge: 0 = Not at all Not being able to stop or control worryin = Not at all Worrying too much about different things: 0 = Not at all Trouble relaxin = Several days Being so restless that it is hard to sit still: 0 = Not at all Becoming easily annoyed or irritable: 1 = Several days Feeling afraid as if something awful might happen: 0 = Not at all Total MARY-7 score (0-4 normal; 5-9 mild; 10-14 moderate; 15-21 severe): 2 Source: Developed by Drs. Tyshawn Sewell, Arely Canchola, Alan Muse and colleagues, with an educational frandy from [employer]. Review of Systems Const All systems reviewed & are unremarkable except as noted in HPI and below Eyes Reports no additional complaints ENT Reports no additional complaints Card Reports no additional complaints Resp Reports no additional complaints GI Reports no additional complaints Reports no additional complaints Physical exam (Primary Care) Vital Signs: Last Vital Signs Pulse 69 07/26/24 08:32 BP 110/74 07/26/24 08:32 Pulse Ox 97 07/26/24 08:32 Oxygen Delivery Method Room Air 07/26/24 08:32 BMI result Body Mass Index 26.4 Tobacco/Smoking Status: Tobacco use Status Tobacco use date assessed 07/26/24 07/26/24 08:36 Patient Tobacco Use Status Former Tobacco user 07/26/24 08:36 e-Cigarette/Vaping Use Never Used 07/26/24 08:36 PHQ-9: PHQ-9 Score PHQ-9: Total score 0 07/26/24 08:36 Depression Screening Interpretation: Negative Thrive Assessment: Date of Thrive Assessment Date Thrive assessed 07/26/24 07/26/24 08:36 Currently or been in a relationship where the following occur: No concerns reported Const General: no acute distress HENMT Head: Yes normal to inspection Ears: hearing grossly normal bilaterally General nose exam: Normal external nose present Face and sinus: Yes normal facial exam Mouth: Normal oral and palatal mucosa present Throat: Yes posterior oropharynx normal Eyes General: appearance normal, both eyes and all related structures Neck Neck: Yes no lymphadenopathy and Yes supple Resp Effort & Inspection: normal respiratory effort Cardio Rhythm: regular rhythm Heart sounds: S1 normal heart sound present and S2 normal heart sound present GI Inspection: Yes normal to inspection Palpation (GI): Soft to palpation Percussion: Yes normal to percussion Auscultation: normal bowel sounds Coding Level of Care Code Est Pt Prev Care 40-64y(42987) Diagnoses HTN (hypertension) I10 Hypercholesterolemia E78.00 Annual physical exam Z00.00 Additional Codes PHQ-9 - 85324 - PHQ-9 Billing: Yes ([id number]) Assessment & Plan Assessment & Plan (1) HTN (hypertension): Code(s): I10 - Essential (primary) hypertension Category: Medical Plan: Continue Priyanka (2) Hypercholesterolemia: Code(s): E78.00 - Pure hypercholesterolemia, unspecified Category: Medical Plan: Continue low-cholesterol diet (3) Annual physical exam: Code(s): Z00.00 - Encounter for general adult medical examination without abnormal findings Category: Medical Plan: Well-balanced diet regular physical activity discussed with the patient. She is up-to-date with colonoscopy mammogram and DEXA by Oncology. Tapering down zolpidem and sleep hygiene discussed with the patient. Orders: Orders Comprehensive [place]. Panel Fast 1 Year E78.00 - Pure hypercholesterolemia, unspecified, I10 - Essential (primary) hypertension, Z00.00 - Encounter for general adult medical examination without abnormal findings Lipid Panel 1 Year E78.00 - Pure hypercholesterolemia, unspecified, I10 - Essential (primary) hypertension, Z00.00 - Encounter for general adult medical examination without abnormal findings Complete Blood Count Auto Diff 1 Year E78.00 - Pure hypercholesterolemia, unspecified, I10 - Essential (primary) hypertension, Z00.00 - Encounter for general adult medical examination without abnormal findings TSH reflex Free T4 1 Year E78.00 - Pure hypercholesterolemia, unspecified, I10 - Essential (primary) hypertension, Z00.00 - Encounter for general adult medical examination without abnormal findings Medications: New buspirone 10 mg PO DAILY 90 tabs 3RF
[2024-07-26 08:32] VITALS: BP 110/74; PULSE 69; O2SAT 97; BMI 26.4
== END 2024-07-26 09:21 | disposition home or self-care (01) ==
PROVIDERS: PCP Internal Medicine; Visit Provider Internal Medicine
DX: I10 Essential (primary) hypertension (principal); E78.00 Pure hypercholesterolemia, unspecified; Z00.00 Encounter for general adult medical examination without abnormal findings

== ENCOUNTER → 2024-07-26 08:28 | Outpatient (BNVA) | payer BC, SELFPAY | PROVIDERS: PCP Internal Medicine; Visit Provider Internal Medicine | DX: Z00.00 Encounter for general adult medical examination without abnormal findings (principal); I10 Essential (primary) hypertension; E78.00 Pure hypercholesterolemia, unspecified; Z79.899 Other long term (current) drug therapy | CPT/HCPCS: 96127 ==

== ENCOUNTER 2025-07-27 06:42 | Outpatient (REF) | payer BC, SELFPAY ==
--- OUTSIDE RECORDS SUMMARY | 2025-07-27 06:45 | XMS_ITS | Patient Health Record ---
Author Organization [facility] Address [address] [place] [address] Care Team Providers Care [facility] Picker Name Role Phone Tyrese Eve MIRZA Primary Care Provider Dillon Marina Jr Unavailable [phone] Reason For Referral No Information Medications Medication SIG (Take, Route, Frequency, Duration) Notes Start Date End Date Status Zoloft 50 MG Tablet 1 tablet Orally Once a day Active Ambien 5 MG Tablet 1 tablet at bedtime Orally prn Active Lisinopril 5 MG Tablet 1 tablet Orally O nce a day Active Colyte with Flavor Packs 240 GM Solution Reconstituted As directed Orally Over the specified time.; Duration: 1 day(s) Active LORazepam 0.5 MG Tablet 1 tablet as need ed Orally prn Active Social History Tobacco Use: Social History Observation Description Date Details (start date - stop date) Current Smoker NA - NA Social History Drugs/Alcohol: Social Info Question Answer Notes Alcohol Screen Did you have a drink containing alcohol in the past year? Yes How often did you have a drink containing alcohol in the past year? 2 to 4 times a month (2 points) How many drinks did you have on a typical day when you were drinking in the past year? 1 or 2 drinks (0 point) How often did you have 6 or more drinks on one occasion in the past year? Never (0 point) Points 2 Interpretation Negative Tobacco Use: Social Info Question Answer Notes Tobacco Use/Smoking Patient is a current smoker How often do you smoke cigarettes? some days, but not every day How many cigarettes a day do you smoke? 5 or less How soon after you wake up do you smoke your first cigarette? after 60 minutes Are you interested in quitting? 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 Problems Problem Type SNOMED Code ICD Code Onset Dates Problem Status W/U Status Risk Notes Problem Screening for colon cancer (350629458) Screening for colon cancer (Z12.11) Active confirmed Problem Hemorrhoids without complication ([id number]) Hemorrhoids, unspecified hemorrhoid type (K64.9) Active confirmed Plan Of Treatment Future Test Test Name Order Date COLONOSCOPY 06/17/2017 Insurance Providers Payer Name Payer Address Payer Phone Subscriber Number Group Number Insured Name Patient Relationship to Insured Coverage Start Date Coverage End Date [employer] [address] [place], [place] [id number] ANA LILIA ROD Self - patient is the insured Medical (General) History Medical History History ICD Code hypertension anxiety/depression/insomnia Surgical History Surgery Date(Month/Year) oopherectomy 1992 tonsillectomy 1990 hemorrhoidectomy 2004
[2025-07-27 06:52] LABS: MANUAL DIFF FLAG NO
[2025-07-27 07:15] LABS: Hematocrit 41.9 % (37.0-47.0); Hemoglobin 14.1 g/dl (12.0-16.0); Imm Gran Abs Auto 0.01 X10*3/uL (0.00-0.03); Imm Gran Pct Auto 0.2 % (0.0-0.4); Lymphocytes Absolute Auto 2.2 X10*3/uL (1.2-4.9); Mean Corpuscular HGB Conc 33.7 g/dl (31.0-35.0); Mean Corpuscular Hemoglobin 31.7 pg (27.0-33.0); Mean Corpuscular Volume 94.2 fL (80.0-98.0); NRBC Abs Auto 0.000 X10*3/uL (0.0-0.012); NRBC Pct Auto 0.0 /100WBC (0.0-0.2); Platelet Count 266 X10*3/uL (160-400); Red Blood Count 4.45 X10*6/uL (4.20-5.50); White Blood Count 6.2 X10*3/uL (4.8-10.8)
[2025-07-27 08:05] LABS: Alanine Aminotransferase 22 U/L (0-31); Albumin Level 4.8 g/dL (3.5-5.0); Alkaline Phosphatase 71 U/L (39-117); Anion Gap 10 (12-20); Aspartate Amino Transferase 25 U/L (5-31); Blood Urea Nitrogen 15 mg/dL (9-16); Calcium 9.9 mg/dL (8.4-10.2); Carbon Dioxide 29 mmol/L (22-29); Chloride 108 mmol/L (96-108); Cholesterol 218 mg/dL (<200); Estimated Glomerular Filt Rate > 60; HDL Cholesterol 94 mg/dL (>40); Potassium 5.0 mmol/L (3.3-5.1); Sodium 142 mmol/L (135-145); Total Protein 7.3 g/dL (6.5-8.0); Triglycerides 93 mg/dL (<150)
== END 2025-07-27 06:43 | disposition home or self-care (01) ==
LOC: HO.LAB 06:42
PROVIDERS: PCP Internal Medicine; Visit Provider Internal Medicine
DX: Z00.00 Encounter for general adult medical examination without abnormal findings (principal); I10 Essential (primary) hypertension; E78.00 Pure hypercholesterolemia, unspecified; C50.912 Malignant neoplasm of unspecified site of left female breast; F41.9 Anxiety disorder, unspecified; F32.9 Major depressive disorder, single episode, unspecified
CPT/HCPCS: 36415; 80053; 80061; 84443; 85025; 96127

== ENCOUNTER 2025-07-27 10:02 | Outpatient (AMB) | payer BC, SELFPAY ==
[2025-07-27 10:04] VITALS: BP 118/76; PULSE 63; RESP 17; TEMP 36.9; O2SAT 96; BMI 26.4
--- NOTE | 2025-07-27 10:04 | A.OFFPC_ITS ---
Vital Signs 07/27/25 10:04 Height 5 ft 4.5 in Weight 156 lb BMI 26.4 BP 118/76 Blood Pressure Location Rt brachial Position Sitting Respiration 17 Pulse 63 Pulse Source Pulse Oximeter Temp 98.4 F Temp Source Oral Pulse Oximetry (%) 96 Oxygen Delivery Method Room Air Intake Visit Reasons: Annual PE Intake Note: Pt is here today for PE. Allergies oxybutynin Allergy (Unknown, Verified 07/27/25 10:05) rash Medication List - Last Reconciled 07/27/25 by Ellen Pleitez MD buspirone 10 mg PO DAILY calcium carbonate (Calcium 600) 600 mg PO DAILY cholecalciferol (vitamin D3) 50 mcg PO DAILY hydrocortisone acetate (Proctocort) 30 mg [place] BEDTIME lisinopril 5 mg PO DAILY magnesium 250 mg PO DAILY zolpidem ER 6.25 mg PO BEDTIME Tobacco use date assessed: 07/27/25 Dental Screening Dental Screen Date: 07/27/25 Did you have a dental visit in the last 12 months?: Yes Did you have a dental problem in the last 6 months where you did not have access to dental care?: No Was dental information given to patient?: Patient has dentist HPI Annual PE HPI Details Pt presents for PE. Patient reports intermittent sensation of itching and the numbness on the anterior lateral left thigh on and off worse after exercising. Patient exercises on treadmill and swims 3 times a week. She denies lower back pain, lower extremities pain or weakness, sciatica. [facility] Medical History (Updated 07/27/25 @ 10:33 by Ellen Pleitez MD) Normal pelvic exam Osteopenia Annual physical exam Breast cancer, left Hypercholesterolemia Anxiety and depression Insomnia HTN (hypertension) Surgical History Hx of rectal sphincterotomy (10/26/23) H/O colonoscopy Family History Father Type 2 diabetes mellitus Hypertension Mother Hypertension Social History Housing: Apartment Patient Tobacco Use Status: Former Tobacco user e-Cigarette/Vaping Use: Never Used service: No Current occupational status: employed Cognitive needs: No Hearing needs: No Vision needs: No Questionnaire PHQ-9 Over the last 2 weeks, how often have you been bothered by any of the following problems? 1. Little interest or pleasure in doing things: not at all 2. Feeling down, depressed, or hopeless: not at all 3. Trouble falling or staying asleep, or sleeping too much: several days 4. Feeling tired or having little energy: not at all 5. Poor appetite or overeating: not at all 6. Feeling bad about yourself - or that you are a failure or have let yourself or your family down: not at all 7. Trouble concentrating on things, such as reading the newspaper or watching television: not at all 8. Moving or speaking so slowly that other people could have noticed. Or the opposite - being so fidgety or restless that you have been moving around a lot more than usual: not at all 9. Thoughts that you would be better off or of hurting yourself in some way: not at all Total score: 1 Depression Screening Interpretation: Negative Depression Screening Done: Yes 12042 - PHQ-9 Billing: Yes Source: Developed by Drs. Tyshawn Sewell, Arely Canchola, Alan Muse and colleagues, with an educational frandy from [employer]. Thrive Questionnaire Date Thrive assessed: 07/27/25 I am a: Patient What is your living situation today?: I have a steady place to live Within the past 12 months, did the food you bought not last and you didn't have the money to get more?: Never true Within the past 12 months, did you worry whether your food would run out before you got money to buy more?: Never true Do you have trouble paying for medicines?: No Do you have trouble getting transportation to medical appointments?: No Do you have trouble paying your heating and electricity bill?: No Do you have trouble taking care of your child, family member or friend?: No Do you have trouble with day-to-day activities such as bathing, preparing meals, shopping, managing finances, etc.?: No Are you currently unemployed and looking for a job?: No Are you interested in more education?: No Please select the resources that you would like help with: None Currently or been in a relationship where the following occur: No concerns reported THRIVE Score: 0 AUDIT C Alcohol Use Questionnaire (AUDIT-C) 1. How often do you have a drink containing alcohol?: Monthly or less 2. How many drinks containing alcohol do you have on a typical day when you are drinking?: 1 or 2 3. How often do you have six or more drinks on one occasion?: Never Total Score: 1 MARY-7 AMB Questionnaire MARY-7 Date MRAY - 7 assessed: 07/27/25 Feeling nervous, anxious, or on edge: 1 = Several days Not being able to stop or control worryin = Not at all Worrying too much about different things: 0 = Not at all Trouble relaxin = Not at all Being so restless that it is hard to sit still: 0 = Not at all Becoming easily annoyed or irritable: 0 = Not at all Feeling afraid as if something awful might happen: 0 = Not at all Total MARY-7 score (0-4 normal; 5-9 mild; 10-14 moderate; 15-21 severe): 1 Source: Developed by Drs. Tyshawn Sewell, Arely Canchola, Alan Muse and colleagues, with an educational frandy from [employer]. MARY-7 Assessment Billing MARY-7 Assessment Tool: MARY-7 Assessment 17910 Review of Systems Const All systems reviewed & are unremarkable except as noted in HPI and below Eyes Reports no additional complaints ENT Reports no additional complaints Card Reports no additional complaints Resp Reports no additional complaints GI Reports no additional complaints Reports no additional complaints Physical exam (Primary Care) Vital Signs: Last Vital Signs Temp 98.4 F 07/27/25 10:04 Pulse 63 07/27/25 10:04 Resp 17 07/27/25 10:04 BP 118/76 07/27/25 10:04 Pulse Ox 96 07/27/25 10:04 Oxygen Delivery Method Room Air 07/27/25 10:04 BMI result Body Mass Index 26.4 Tobacco/Smoking Status: Tobacco use Status Tobacco use date assessed 07/27/25 07/27/25 10:11 Patient Tobacco Use Status Former Tobacco user 07/27/25 10:11 e-Cigarette/Vaping Use Never Used 07/27/25 10:11 PHQ-9: PHQ-9 Score PHQ-9: Total score 1 07/27/25 10:11 Depression Screening Interpretation: Negative Thrive Assessment: Date of Thrive Assessment Date Thrive assessed 07/27/25 07/27/25 10:11 Currently or been in a relationship where the following occur: No concerns reported Const General: no acute distress HENMT Head: Yes normal to inspection Face and sinus: Yes normal facial exam Mouth: Normal oral and palatal mucosa present Throat: Yes posterior oropharynx normal Eyes General: appearance normal, both eyes and all related structures Neck Neck: Yes no lymphadenopathy and Yes supple Resp Effort & Inspection: normal respiratory effort Auscultation: clear to auscultation bilaterally Cardio Rhythm: regular rhythm Heart sounds: S1 normal heart sound present and S2 normal heart sound present GI Inspection: Yes normal to inspection Palpation (GI): Soft to palpation Percussion: Yes normal to percussion Auscultation: normal bowel sounds Back/Spine/Pelvis Other: Straight leg rising 90 degrees bilaterally. Deep tendon reflexes 2+ bilaterally, strength 5/5 upper and lower extremities bilaterally Thoracic/Lumbar Spine: thoracic and lumbar spine normal to inspection Coding Level of Care Code Est Pt Prev Care 40-64y(63248) Diagnoses Breast cancer, left C50.912 Annual physical exam Z00.00 HTN (hypertension) I10 Anxiety and depression F41.9; F32.9 Additional Codes MARY-7 Assessment Billing - MARY-7 Assessment Tool: MARY-7 Assessment 22424 ([id number]) PHQ-9 - 41730 - PHQ-9 Billing: Yes ([id number]) Assessment & Plan Assessment & Plan (1) Breast cancer, left: Comment: 12/2017 s/p lumpectomy/RTx, on anastrozole f/u [facility] Code(s): C50.912 - Malignant neoplasm of unspecified site of left female breast Category: Medical Plan: Follow-up with [facility] (2) Annual physical exam: Code(s): Z00.00 - Encounter for general adult medical examination without abnormal findings Category: Medical Plan: Well-balanced diet regular physical activity discussed with the patient, she is up-to-date with the colonoscopy mammogram and will schedule pelvic exam with a 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 (3) HTN (hypertension): Code(s): I10 - Essential (primary) hypertension Category: Medical Plan: Continue Lisinopril (4) Anxiety and depression: Code(s): F41.9 - Anxiety disorder, unspecified; F32.9 - Major depressive disorder, single episode, unspecified Category: Medical Plan: Continue buspirone and stress management discussed with the patient, patient was advised to taper down zolpidem and sleep hygiene discussed with the pt Orders: Orders Lipid Panel 1 Year E55.9 - Vitamin D deficiency, unspecified, E78.00 - Pure hypercholesterolemia, unspecified, F32.9 - Major depressive disorder, single episode, unspecified, F41.9 - Anxiety disorder, unspecified, I10 - Essential (primary) hypertension TSH reflex Free T4 1 Year E55.9 - Vitamin D deficiency, unspecified, E78.00 - Pure hypercholesterolemia, unspecified, F32.9 - Major depressive disorder, single episode, unspecified, F41.9 - Anxiety disorder, unspecified, I10 - Essential (primary) hypertension Vitamin D 25-OH Total 1 Year E55.9 - Vitamin D deficiency, unspecified, E78.00 - Pure hypercholesterolemia, unspecified, F32.9 - Major depressive disorder, single episode, unspecified, F41.9 - Anxiety disorder, unspecified, I10 - Essential (primary) hypertension UA w Microscopic 1 Year E55.9 - Vitamin D deficiency, unspecified, E78.00 - Pure hypercholesterolemia, unspecified, F32.9 - Major depressive disorder, single episode, unspecified, F41.9 - Anxiety disorder, unspecified, I10 - Essential (primary) hypertension Comprehensive Mineral. Panel Fast 1 Year E55.9 - Vitamin D deficiency, unspecified, E78.00 - Pure hypercholesterolemia, unspecified, F32.9 - Major depressive disorder, single episode, unspecified, F41.9 - Anxiety disorder, unspecified, I10 - Essential (primary) hypertension Complete Blood Count Auto Diff 1 Year E55.9 - Vitamin D deficiency, unspecified, E78.00 - Pure hypercholesterolemia, unspecified, F32.9 - Major depressive disorder, single episode, unspecified, F41.9 - Anxiety disorder, unspecified, I10 - Essential (primary) hypertension
== END 2025-07-27 11:05 | disposition home or self-care (01) ==
LOC: HO.HMCC 10:03
PROVIDERS: PCP Internal Medicine; Visit Provider Internal Medicine
DX: Z00.00 Encounter for general adult medical examination without abnormal findings (principal); C50.912 Malignant neoplasm of unspecified site of left female breast; I10 Essential (primary) hypertension; F41.9 Anxiety disorder, unspecified; F32.9 Major depressive disorder, single episode, unspecified